=== PATIENT | male | born 1965 | race Caucasian/White ===

== ENCOUNTER 2017-04-30 15:11 | Emergency (ER) | payer SELFPAY ==
[2017-04-30] MEDS ORDERED: Cephalexin 500 MG Cap PO ONE (18:04)
[2017-04-30] MEDS ORDERED: Diphtheria,Pertussis(Acell),Tetanus Vaccine 0.5 ML SDV IM ONE (18:04)
--- NOTE | 2017-04-30 18:10 | EDM.PDOC ---
ED HPI GENERAL MEDICAL PROBLEM - General Chief Complaint: Upper Extremity Injury/Pain Stated Complaint: CUT TIP OF FINGER ON A SAW, [id number] Time Seen by Provider: 04/30/17 18:00 Source of Information: Reports: Patient, RN, RN Notes Reviewed History Limitations: Reports: No Limitations - History of Present Illness INITIAL COMMENTS - FREE TEXT/NARRATIVE: Patient cut his distal left third finger on the skill saw at 11:00 o'clock this morning. No other injury. Last tetanus vaccine greater than 10 years ago. Onset: Today Location: Reports: Upper Extremity, Left (third finger) Quality: Reports: Ache Severity: Mild Improves with: Reports: None Worsens with: Reports: None Associated Symptoms: Reports: No Other Symptoms Left 3-Middle finger Pain Score (Numeric/FACES): 9 - Related Data Allergies Allergy/AdvReac Type Severity Reaction Status Date / Time No Known Allergies Allergy Verified 04/30/17 17:56 Home Meds: Home Meds . [No Known Home Meds] 04/30/17 [History] Past Medical History - Past Health History Medical/Surgical History: Denies Medical/Surgical History - Infectious Disease History Infectious Disease History: Reports: Chicken Pox Social & Family History - Family History Family Medical History: Noncontributory - Tobacco Use Smoking Status *Q: Current Every Day Smoker Years of Tobacco use: 30 Packs/Tins Daily: 0.5 Second Hand Smoke Exposure: Yes - Caffeine Use Caffeine Use: Reports: Coffee - Recreational Drug Use Recreational Drug Use: Yes Review of Systems - Review of Systems Review Of Systems: ROS reveals no pertinent complaints other than HPI. ED EXAM, GENERAL - Physical Exam Exam: See Below Exam Limited By: No Limitations General Appearance: Alert, WD/WN, No Apparent Distress Respiratory/Chest: No Respiratory Distress Cardiovascular: Normal Peripheral Pulses (at bilateral upper extremities.) (Male) Exam: Deferred Rectal (Males) Exam: Deferred Extremities: Other (distal left 3rd finger with partial (distal) nail plate and soft tissue avulsion. No active bleeding. No foreign body. ) Neurological: Alert, Oriented, CN II-XII Intact, Normal Cognition, Normal Gait, Normal Reflexes, No Motor/Sensory Deficits Psychiatric: Normal Affect, Normal Mood Course - Vital Signs Last Recorded V/S: Last Vital Signs Temp 36.9 C 04/30/17 17:16 Pulse 72 01/10/18 17:16 Resp 16 04/30/17 17:16 BP 118/71 04/30/17 17:16 Pulse Ox 100 04/30/17 17:16 - Orders/Labs/Meds Orders: Active Orders 24 hr Category Date Time Status Vaccines to be Administered [RC] PER UNIT ROUTINE Care 04/30/17 18:04 Active Meds: Medications Discontinued Medications Generic Name Dose Route Start Last Admin Trade Name [place] PRN Reason Stop Dose Admin Cephalexin 500 mg 04/30/17 18:04 04/30/17 18:23 Keflex PO 04/30/17 18:05 500 mg ONETIME ONE Administration Diphtheria/Tetanus/Acell Pertussis 0.5 ml 04/30/17 18:04 04/30/17 18:23 Adacel IM 04/30/17 18:05 0.5 ml .ONCE ONE Administration - Re-Assessments/Exams Free Text/Narrative Re-Assessment/Exam: 04/30/17 18:23 Wound cleansed and surgical dressing placed by RN. Departure - Departure Time of Disposition: 18:19 Disposition: Home, Self-Care 01 Condition: Good Clinical Impression: Soft tissue avulsion Nail avulsion, finger Qualifiers: Encounter type: initial encounter Qualified Code(s): S61.309A - Unspecified open wound of unspecified finger with damage to nail, initial encounter - Discharge Information Instructions: Nail Avulsion Forms: ED Department Discharge Additional Instructions: RX: Cephalexin 500mg. Keep dressing clean and dry. Keep surgical portion of dressing in place as long as possible. Follow up in clinic or return to ER if any problems. - My Orders Last 24 Hours: My Active Orders 04/30/17 18:04 Vaccines to be Administered [RC] PER UNIT ROUTINE - Assessment/Plan Last 24 Hours: My Active Orders 04/30/17 18:04 Vaccines to be Administered [RC] PER UNIT ROUTINE
== END 2017-04-30 18:35 | disposition home or self-care (01) ==
LOC: DL.ED 15:11
DX: S61.303A Unspecified open wound of left middle finger with damage to nail, initial encounter (principal); F17.210 Nicotine dependence, cigarettes, uncomplicated; Z23 Encounter for immunization; W29.8XXA Contact with other powered hand tools and household machinery, initial encounter
CPT/HCPCS: 90471; 90715; 99283; A9270; L3999